=== PATIENT | female | born 1960 | race Caucasian/White ===

== ENCOUNTER → 2018-04-01 13:46 | Outpatient (REF) | payer BC, SELFPAY ==
--- NOTE | 2018-04-01 13:00 | PAPFT_PTH ---
PATIENT: Tara Carrillo LOC: [facility] U#:[id number] AGE/SX: 65/F ROOM: RE04/01/[address]: LUIS ARMANDO Major : 1960 BED: DIS: SPEC #: [id number] RECD: 04/01/18 15:31 STATUS: KATINA REGris #: [id number] MARVEL: 04/01/18 13:[address]: Alessia Thomas DEPT: COUNT INCLUDES THE [facility] Cytology RECD BY: Annette Butler ENTERED: 04/01/18 15:31 SP TYPE: PAPFT OTHR DR: Nicki Soto Tissues: 1 - CX/ENDOCX FOR PAP SMEARS Procedures: PAP THIN PREP/UVM Screening HPV DNA PROBE Comments: [id number]
== END ==
LOC: LBN 13:46
PROVIDERS: PCP Nurse Practitioner; Visit Provider Nurse Practitioner Family
DX: Z12.4 Encounter for screening for malignant neoplasm of cervix (principal); Z11.51 Encounter for screening for human papillomavirus (HPV)
CPT/HCPCS: 88142; 87624

== ENCOUNTER → 2018-04-11 01:18 | Outpatient (CLI) | payer BC, SELFPAY ==
--- NOTE | 2018-04-11 15:23 | DI.REPORT_ITS ---
SYMPTOMS/DIAGNOSIS: SCREENING, Z12.31 MAMMOGRAM: Mammograms were interpreted according to the usual protocol including computer analysis with CAD system, tomosynthesis and C view imaging. The breasts are of moderate density with fairly symmetrical distribution of fibroglandular tissue. No dominant mass or clumped microcalcification is identified in either breast. Current examination is compared with the previous examinations including October 2015 and there has been no gross interval change in appearance in comparison with the previous studies. CONCLUSION: No specific evidence of malignancy at this time. Routine screening examinations are suggested at yearly intervals due to the family history of breast carcinoma. Category 1, breast density category B. MQSA ASSESSMENT OF FINDINGS: Negative. Category 1. Patient will receive a letter notifying them of these results. BI-RADS category B. There are scattered areas of fibroglandular density.
== END ==
PROVIDERS: PCP Nurse Practitioner; Visit Provider Nurse Practitioner Family
DX: Z12.31 Encounter for screening mammogram for malignant neoplasm of breast (principal); Z80.3 Family history of malignant neoplasm of breast
CPT/HCPCS: 77063; 77067

== ENCOUNTER 2019-12-12 01:27 | Outpatient (CLI) | payer OTHER, SELFPAY ==
[2019-12-15 11:05] LABS: HBs Antibody, Quant >1000.0 mIU/mL (See Note); Hepatitis B Surface Ab Positive (See Note)
== END 2019-12-12 01:47 ==
PROVIDERS: Nurse Practitioner Family; PCP Nurse Practitioner; Visit Provider Nurse Practitioner Family
DX: Z02.1 Encounter for pre-employment examination (principal); Z01.84 Encounter for antibody response examination
CPT/HCPCS: 36415; 86706

== ENCOUNTER 2020-01-01 07:41 | Outpatient (REF) | payer OTHER, SELFPAY ==
[2020-01-01 17:29] LABS: ALT 38 U/L (14-59); AST 20 U/L (15-37); Albumin 3.5 g/dL (3.4-5.0); Alkaline Phosphatase 78 U/L (46-116); Anion Gap 9.1 mmol/L (3-11); BUN 15 mg/dL (7-18); Bilirubin, Total 0.3 mg/dL (0.2-1.0); CO2 26.9 mmol/L (21.0-32.0); CREATININE 1.02 mg/dL (0.55-1.02); Calcium 8.8 mg/dL (8.5-10.1); Calculated LDL 142 mg/dL (<100); Chloride 106 mmol/L (98-107); Cholesterol 220 mg/dL (<200); Estimated GFR 55.86 (mL/min/1.73m2); Glucose 90 mg/dL (74-106); HDL Cholesterol 58 mg/dL (40-60); Magnesium 2.1 mg/dL (1.8-2.4); Potassium 4.1 mmol/L (3.5-5.1); Sodium 142 mmol/L (136-145); TSH (W/Ref FT4) 2.18 uIU/mL (0.36-3.74); Total Protein 6.6 g/dL (6.4-8.2); Triglyceride 104 mg/dL (<150)
== END 2020-01-01 08:01 ==
LOC: NCHCN 07:41
PROVIDERS: PCP Nurse Practitioner; Visit Provider Nurse Practitioner
DX: R00.2 Palpitations (principal); R03.0 Elevated blood-pressure reading, without diagnosis of hypertension; E78.5 Hyperlipidemia, unspecified
CPT/HCPCS: 80053; 80061; 83735; 84443

== ENCOUNTER 2020-02-04 01:00 | Outpatient (CLI) | payer OTHER, SELFPAY ==
--- NOTE | 2020-02-04 | DI.MAMMO_ITS ---
EXAM: MG MAMMO SCREENING CLINICAL HISTORY: [facility] Z00.00, SCREENING TECHNIQUE: Bilateral full field digital CC and MLO mammographic images were obtained with 3D tomosyn thesis and utilizing computer aided detection (CAD). COMPARISON: Available for comparison. FINDINGS: Masses/Architectural Distortion: None seen. Microcalcifications: No suspicious pleomorphic-type are seen. Skin Thickening/Nipple Retraction: None. IMPRESSION: 1. No significant interval change with no specific features of malignancy noted. 2. Unless there is more urgent need, screening mammography is recommended, as per [place] [employer] guidelines. BI-RADS Category 1 - Negative Breast Density - Category B - Scattered areas of fibroglandular density A negative radiographic report should not delay biopsy if a dominant or clinically suspicious mass is present. Up to ten percent of cancers are not identified on mammography. A negative report may reinforce clinical impression. Adenosis and dense breasts may obscure an underlying neoplasm. False positive reports average 6 to 10%. Patient will receive a letter notifying them of these results.
== END 2020-02-04 01:20 ==
PROVIDERS: PCP Nurse Practitioner; Visit Provider Nurse Practitioner Family
DX: Z00.00 Encounter for general adult medical examination without abnormal findings (principal); Z12.31 Encounter for screening mammogram for malignant neoplasm of breast
CPT/HCPCS: 77063; 77067

== ENCOUNTER 2020-05-05 07:14 | Day surgery (SDC) | payer OTHER, SELFPAY ==
--- NOTE | 2020-05-05 06:47 | W.COLOREPORT ---
Date of service: 05/05/20 Time of Service: 08:49 Colonoscopy Report Date of procedure: 05/05/20 Pre-op diagnosis general: rectal bleeding, Family history of Colon CA and personal history of polyps Post-op diagnosis procedure note: other (Grade 1 and 2 internal hemorrhoids, mild diverticulosis) Procedure: Colonoscopy Surgeon: Madelyn Adames Anesthesia proc note operative: other (general/ ASA 2/ Germán Rothman, TRACEY) Estimated blood loss (mL): 0 Pathology: none sent Complications: None Disposition: same day Indications: Tara is here today because she had 2 episodes of rectal bleeding. She had some abdominal pain as well. At this point her symptoms have resolved. She does have a family history of colon cancer and she herself has had 2 colonoscopies with tubular adenomas 1 in 2009 and one in 2013. Her last colonoscopy in 2016 was normal. Differential diagnosis includes bleeding from a hemorrhoid, Diverticular bleed or a polyp/mass. Prep: Miralax/Dulcolax Procedure Start Time: 08:49 Procedure End Time: 09:13 Retraction Time: 9 minutes Findings: mild diverticulosis. Grade 1 and 2 internal hemorrhoids No polyps Procedure Description: After informed consent was obtained the patient was taken to the procedure room and placed in a left decubitous position. Monitors were applied and a time out was done. The patients name, date of , procedure, allergies to medications and metal in their body was reviewed. The patient was then sedated. Once sedated and comfortable a rectal exam was done. External exam was normal. Internal exam revealed a normal sphincter tone and no palpable masses. The scope was then introduced and retro-flexed. Grade 1 and 2 internal hemorrhoids were identified. The scope was then advanced to the cecum without difficulty. The ileocecal valve and appendiceal orifice were identified. The prep was adequate. The scope was then slowly retracted over 9 minutes back into the rectum. There were no polyps. There was mild diverticulosis of the descending and sigmoid colon. The scope was removed and the patient was woken up and taken back to Same day surgery in stable condition. The patient tolerated the procedure well and there were no immediate complications. Follow up: The patient should follow up in 5 years, due to family history of colon cancer, unless they develop changes in bowel habits or other new gastrointestinal complaints.
--- NOTE | 2020-05-05 06:51 | W.PM.DSUDISC ---
Discharge Plan Disposition Patient Disposition: HOME Condition: Good Discharge Details Reason For Visit: Rectal bleeding Attending Provider: Madelyn Adames Primary Care Provider: Nicki Soto Home Meds and New Rx's Prescriptions: Continued fexofenadine 180 mg tablet 180 mg PO DAILY RF: 0 omeprazole 10 MG capsule,delayed release(DR/EC) 20 mg PO DAILY RF: 0 Discharge Instructions Instructions: Hemorrhoids (DC), Diverticulosis (DC) Additional Instructions: Findings: mild diverticulosis internal hemorrhoids Follow up: 5 years Please call if you develop: fevers >101.5 Nausea or Vomiting Abdominal pain that is not transient DAY SURGERY UNIT POST ENDOSCOPY INSTRUCTIONS 1. Because there will be medication in your system for the next 24 hours, you may feel a little sleepy. Your coordination will be affected. Therefore: a. Do not drive or operate dangerous equipment for 24 hours. b. Do not drink alcohol beverages for 24 hours (not even beer). c. Plan to go home and rest for the day. 2. Generally there are no restrictions on your activity after a day or so has gone by, but you may feel a bit fatigued for a few days. 3 After you arrive home you may have a light meal and return to a normal diet as you can tolerate it without feeling sick to your stomach. 4. After surgery, you may feel pain or discomfort. This should be only transient, but if it persists please contact your doctor. 5. If there are any questions regarding the findings of your procedure, please feel free to contact your doctor. 6. If you are unable to contact your doctor with a problem, contact the hospital at [phone]. 7. Continue all your regular medications unless directed otherwise. I understand the above instructions and have no questions. Signature of Patient or Responsible Adult Escort Date/Time Name of Responsible Adult Escort Signature of Nurse Date/Time Activity:: Activity as Tolerated Diet:: High Fiber Discharge Orders Discharge Orders: Discharge Order (Routine); Ordered 05/05/20 Ordered By: Madelyn Adames
[2020-05-05 07:20] VITALS: BP 126/78; PULSE 77; RESP 18; TEMP 36.1; O2SAT 97
[2020-05-05] MEDS: Lactated Ringers 1,000 ML 80 ML IV (07:45)
[2020-05-05 09:59] VITALS: BP 154/74; PULSE 80; RESP 16; TEMP 36.5; O2SAT 98
== END 2020-05-05 10:36 | disposition home or self-care (01) ==
PROVIDERS: PCP Nurse Practitioner; Visit Provider Surgery
PROC: 0DJD8ZZ Inspection of Lower Intestinal Tract, Via Natural or Artificial Opening Endoscopic (ICD-10-PCS; CPT 45378; principal; 2020-05-05 08:30)
DX: K62.5 Hemorrhage of anus and rectum (principal); Z86.010 Personal history of colon polyps; Z80.0 Family history of malignant neoplasm of digestive organs; K57.30 Diverticulosis of large intestine without perforation or abscess without bleeding; K64.1 Second degree hemorrhoids
CPT/HCPCS: 45378; J2001

== ENCOUNTER 2020-11-29 12:06 | Outpatient (REF) | payer OTHER, SELFPAY ==
--- NOTE | 2020-11-29 09:30 | PAPFT_PTH ---
PATIENT: Tara Carrillo LOC: [facility] U#:[id number] AGE/SX: 60/F ROOM: RE11/29/[address]: LUIS ARMANDO Major : 1960 BED: DIS: 11/29/2020 SPEC #: [id number] RECD: 11/29/20 12:57 STATUS: KATINA REGris #: [id number] MARVEL: 11/29/20 09:[address]: Alessia Thomas DEPT: [facility] Cytology RECD BY: Annette Butler ENTERED: 11/29/20 12:57 SP TYPE: PAPFT OTHR DR: Nicki Soto Tissues: 1 - CX/ENDOCX FOR PAP SMEARS Procedures: PAP THIN PREP/UVM Screening HPV DNA PROBE Comments: [id number]
== END 2020-11-29 12:07 | disposition home or self-care (01) ==
LOC: LBN 12:06
PROVIDERS: PCP Nurse Practitioner; Visit Provider Nurse Practitioner Family
DX: Z12.4 Encounter for screening for malignant neoplasm of cervix (principal); Z11.51 Encounter for screening for human papillomavirus (HPV)
CPT/HCPCS: 88142; 87624

== ENCOUNTER 2021-02-04 02:12 | Outpatient (CLI) | payer OTHER, SELFPAY ==
--- NOTE | 2021-02-04 06:45 | DI.MAMMO_ITS ---
Exam(s) MAMMO SCREENING EXAM: MAMMO SCREENING CLINICAL HISTORY: screening, Z12.39 TECHNIQUE: Bilateral full field digital CC and MLO mammographic images were obtained with 3D tomosyn thesis and utilizing computer aided detection (CAD). COMPARISON: Available for comparison. FINDINGS: Masses/Architectural Distortion: None seen. Microcalcifications: No suspicious pleomorphic-type are seen. Skin Thickening/Nipple Retraction: None. IMPRESSION: 1. No significant interval change with no specific features of malignancy noted. 2. Unless there is more urgent need, screening mammography is recommended, as per [place] [employer] guidelines. BI-RADS Category 1 - Negative Breast Density - Category B - Scattered areas of fibroglandular density Breast density category C or D implies that the patient has dense breast tissue. Dense breast tissue is very common and is not abnormal but dense breast tissue can make it harder to find cancer on a ma mmogram. Also, dense breast tissue may increase their breast cancer risk. This information about the result of the mammogram report was provided to the patient to raise their awareness. Use this report when you speak with the patient about their risks for breast cancer, which includes their family hist ory. At that time, you may recommend for more screening tests (Ultrasound or MRI) as they might be us eful based on their risk. A negative radiographic report should not delay biopsy if a dominant or clinically suspicious mass is present. Up to ten percent of cancers are not identified on mammography. A negative report may reinforce clinical impression. Adenosis and dense breasts may obscure an underlying neoplasm. False positive reports average 6 to 10%. Patient will receive a letter notifying them of these results.
== END 2021-02-04 02:32 ==
PROVIDERS: PCP Nurse Practitioner; Visit Provider Nurse Practitioner Family
DX: Z12.31 Encounter for screening mammogram for malignant neoplasm of breast (principal)
CPT/HCPCS: 77063; 77067

== ENCOUNTER 2022-10-19 16:50 | Outpatient (REF) | payer OTHER, SELFPAY ==
[2022-10-19 18:51] LABS: Abs Immature Grans 0.02 10^3/uL (0.0-0.06); Absolute Basophil Count 0.06 10^3/uL (0.0-0.2); Absolute Eosinophil Count 0.17 10^3/uL (0.0-0.7); Absolute Lymphocyte Count 2.32 10^3/uL (1.2-3.4); Absolute Monocyte Count 0.39 10^3/uL (0.1-0.8); Absolute Neutrophil Count 3.56 10^3/uL (1.2-6.7); Basophils % 0.9; Eosinophils % 2.6; HGB 14.3 g/dL (11.2-15.7); Immature Grans % 0.3; Lymphocytes % 35.6; MCH 28.6 pg (27.0-33.0); MCHC 32.5 % (32.0-36.0); MCV 88 fL (80-95); MPV 11.1 fL (8.0-11.0); Neutrophils % 54.6; Platelet Count 271 10^3/uL (130-400); RDW 13.1 % (11.7-14.6); RDW-SD 42.4 fL; WBC 6.52 10^3/uL (4.4-10.8)
[2022-10-19 18:59] LABS: ALT 30 U/L (14-59); AST 20 U/L (15-37); Albumin 3.7 g/dL (3.4-5.0); Alkaline Phosphatase 97 U/L (46-116); Anion Gap 7.6 mmol/L (3-11); BUN 15 mg/dL (7-18); Bilirubin, Total 0.2 mg/dL (0.2-1.0); CO2 29.4 mmol/L (21.0-32.0); CREATININE 0.9 mg/dL (0.55-1.02); Calcium 9.2 mg/dL (8.5-10.1); Calculated LDL 169 mg/dL (<100); Chloride 107 mmol/L (98-107); Cholesterol 265 mg/dL (<200); Estimated GFR 73.19 (mL/min/1.73m2); Glucose 120 mg/dL (74-106); HDL Cholesterol 63 mg/dL (40-60); Potassium 3.9 mmol/L (3.5-5.1); Sodium 144 mmol/L (136-145); TSH (W/Ref FT4) 1.77 uIU/mL (0.36-3.74); Total Protein 6.9 g/dL (6.4-8.2); Triglyceride 168 mg/dL (<150)
== END 2022-10-19 16:51 | disposition home or self-care (01) ==
LOC: NCHCN 16:50
PROVIDERS: PCP Nurse Practitioner; Visit Provider Nurse Practitioner Family
DX: K21.9 Gastro-esophageal reflux disease without esophagitis (principal); R03.0 Elevated blood-pressure reading, without diagnosis of hypertension; R00.2 Palpitations; R42 Dizziness and giddiness; E78.5 Hyperlipidemia, unspecified; Z71.89 Other specified counseling
CPT/HCPCS: 80053; 80061; 83735; 84443; 85025

== ENCOUNTER 2022-11-21 08:26 | Outpatient (CLI) | payer OTHER, SELFPAY | END 2022-11-21 08:27 | disposition home or self-care (01) | PROVIDERS: PCP Nurse Practitioner Family; Visit Provider Nurse Practitioner Family | DX: R42 Dizziness and giddiness (principal); R00.2 Palpitations | CPT/HCPCS: 93270 ==

== ENCOUNTER 2022-12-14 03:04 | Outpatient (CLI) | payer OTHER, SELFPAY ==
--- NOTE | 2022-12-14 13:12 | DI.MAMMO_ITS ---
Exam(s) MAMMO SCREENING EXAM: MAMMO SCREENING CLINICAL HISTORY: SCREENING, Z12.39 TECHNIQUE: Mammograms were interpreted according to the usual protocol including computer analysis w [email or web address] CAD system, tomosynthesis and C-view imaging. COMPARISON: 2014 through 2020 FINDINGS: The breasts are composed of scattered fibroglandular densities, Breast Density category B. No suspicious masses or suspicious microcalcifications are seen. No skin thickening or abnormal axillary lymph nodes are seen. There has been no significant change from prior exams. IMPRESSION: BI-RADS Category 1, Negative mammogram Yearly screening mammography is recommended. Breast Density - Category B, scattered fibroglandular densities. A negative radiographic report should not delay biopsy if a dominant or clinically suspicious mass is present. Up to ten percent of cancers are not identified on mammography. A negative report may reinforce clinical impression. Adenosis and dense breasts may obscure an underlying neoplasm. False positive reports average 6 to 10%. Patient will receive a letter notifying them of these results.
== END 2022-12-14 03:24 ==
LOC: DI 03:04
PROVIDERS: PCP Nurse Practitioner Family; Visit Provider Nurse Practitioner Family
DX: Z12.31 Encounter for screening mammogram for malignant neoplasm of breast (principal)
CPT/HCPCS: 77063; 77067

== ENCOUNTER 2022-12-14 08:46 | Outpatient (CLI) | payer OTHER, SELFPAY ==
--- NOTE | 2022-12-14 10:40 | W.CARDEVENT ---
Date of service: 12/14/22 Time of Service: 10:40 Cardiac Event Recorder Referring Provider:: Emperatriz Ventura Indications:: Palpitations and dizziness Cardiac Event Note: This is a cardiac event recorder ordered for palpitations and dizziness Rhythm throughout was sinus with average heart rate of 83. There was no bradycardia. Maximum heart rate was 110 There were no ventricular dysrhythmias There were rare atrial premature beats. There was no atrial fibrillation, no SVT, no high-grade AV block, no pauses greater than 3 seconds Patient's symptoms of lightheadedness were reported which generally corresponded to sinus rhythm in the 80s
== END 2022-12-14 08:47 | disposition home or self-care (01) ==
LOC: CARDOPNVT 08:46
PROVIDERS: PCP Nurse Practitioner Family; Visit Provider Internal Medicine Cardiovascular Disease
DX: R00.2 Palpitations (principal); R42 Dizziness and giddiness

== ENCOUNTER 2024-06-05 01:36 | Outpatient (CLI) | payer OTHER, SELFPAY ==
--- NOTE | 2024-06-05 | DI.MAMMO_ITS ---
Exam(s) MAMMO SCREENING EXAM: MAMMO SCREENING CLINICAL HISTORY: SCREENING MAMMO Z12.39. TECHNIQUE: Bilateral full field digital CC and MLO mammographic images were obtained with 3D tomosyn thesis and utilizing computer aided detection (CAD). COMPARISON: Prior mammograms were reviewed. FINDINGS: There has been no significant change in the appearance and distribution of the fibroglandular tissue. There are no new spiculated masses nor malignant appearing microcalcification groups. There is no significant architectural distortion nor skin thickening-retraction. IMPRESSION: No radiographic evidence of malignancy. BI-RADS Category 1 - Negative Breast Density - Category B - Scattered areas of fibroglandular density Breast density Category C or D implies that the patient has dense breast tissue. Dense breast tissue can make it harder to find cancer on a mammogram. Dense breast tissue is also associated with an incr eased risk of breast cancer. This information about the result of the mammogram report was provided to the patient to raise their awareness. Use this report when you speak with the patient about their risks for breast cancer, which includes their family history. At that time, you may recommend additional screening tests (Ultrasoun d or MRI) as these tests may add significant information. A negative radiographic report should not delay biopsy if a dominant or clinically suspicious mass is present. Up to ten percent of cancers are not identified on mammography. A negative report may reinforce clinical impression. Adenosis and dense breasts may obscure an underlying neoplasm. False positive reports average 6 to 10%. Patient will receive a letter notifying them of these results.
== END 2024-06-05 01:56 ==
LOC: DI 01:36
PROVIDERS: PCP Nurse Practitioner Family; Visit Provider Nurse Practitioner Family
DX: Z12.31 Encounter for screening mammogram for malignant neoplasm of breast (principal)
CPT/HCPCS: 77063; 77067

== ENCOUNTER 2024-07-09 21:56 | Outpatient (REF) | payer OTHER, SELFPAY ==
[2024-07-09 19:13] LABS: ALT 27 U/L (14-59); AST 21 U/L (15-37); Albumin 3.6 g/dL (3.4-5.0); Alkaline Phosphatase 86 U/L (46-116); BUN 17 mg/dL (7-18); Bilirubin, Total 0.38 mg/dL (0.2-1.0); CREATININE 0.7 mg/dL (0.55-1.02); Calcium 9.1 mg/dL (8.5-10.1); Calculated LDL 154 mg/dL (<100); Chloride 107 mmol/L (98-107); Cholesterol 247 mg/dL (<200); Estimated GFR 97.72 (mL/min/1.73m2); Glucose 80 mg/dL (74-106); HDL Cholesterol 64 mg/dL (40-60); Potassium 3.9 mmol/L (3.5-5.1); Sodium 144 mmol/L (136-145); Triglyceride 145 mg/dL (<150)
[2024-07-09 19:18] LABS: Hemoglobin A1C 5.4 % (<5.7)
[2024-07-10 19:22] LABS: Hepatitis C Ab w Rflx HCV PCR Negative (Negative)
== END 2024-07-09 21:57 | disposition home or self-care (01) ==
LOC: NCHCN 21:56
PROVIDERS: PCP Nurse Practitioner Family; Visit Provider Nurse Practitioner Family
DX: Z00.00 Encounter for general adult medical examination without abnormal findings (principal); Z13.1 Encounter for screening for diabetes mellitus; Z13.228 Encounter for screening for other metabolic disorders; Z11.59 Encounter for screening for other viral diseases; Z13.220 Encounter for screening for lipoid disorders
CPT/HCPCS: 80053; 80061; 86803; 83036

== ENCOUNTER 2025-07-10 08:49 | Day surgery (SDC) | payer OTHER, SELFPAY ==
[2025-07-10 08:56] VITALS: BP 141/65; PULSE 80; RESP 20; TEMP 36.4; O2SAT 96
[2025-07-10] MEDS: Lactated Ringers 1,000 ML 80 ML IV (09:29)
--- NOTE | 2025-07-10 10:44 | W.ANESPRE ---
General Info Date of Service Date Performed: 07/10/25 Height: 4 ft 11 in Weight: 70.6 kg Body Mass Index (BMI): 31.4 Surgical Procedure: Operation Date: 07/10/25 10:05 Proposed Procedure Side Surgeon p Colonoscopy Loraine Meier MD Meds Allergies and Home Medications Allergies Allergy/AdvReac Type Severity Reaction Status Date / Time No Known Allergies Allergy Verified 07/10/25 09:08 Home Medication Medication Instructions Recorded loratadine 5 mg/5 mL oral solution 10 ml PO ONCE 03/03/22 (Claritin) estradiol 10 mcg vaginal tablet 10 mcg vaginal .twice weekly 12 07/10/24 (Vagifem) months #30 tabs montelukast 10 mg tablet 10 mg PO DAILY 06/05/25 esomeprazole magnesium 20 mg 20 mg PO DAILY 06/09/25 capsule,delayed release (Nexium) Current Visit Medications: Current Medications Generic Name Dose Route Start Last Admin Trade Name Freq PRN Reason Stop Dose Admin Ringer's Solution 1,000 mls @ 80 mls/hr 07/10/25 06:00 07/10/25 09:29 IV 07/10/25 23:59 80 mls/hr INFUSION MELQUIADES Administration IV Miscellaneous Supplies 1 each 07/10/25 06:00 Iv Access IV 07/10/25 23:59 DIRECTED MELQUIADES Sodium Chloride 0 ml 07/10/25 06:00 Normal Saline Flush 10 Ml Syr IV 07/10/25 23:59 PRN PRN Sodium Chloride 0 ml 07/10/25 06:00 Normal Saline 10 Ml Vial IJ 07/10/25 23:59 DIRECTED PRN Sterile Water 0 ml 07/10/25 06:00 Water,Injection,Sterile 10 Ml Vial IJ 07/10/25 23:59 DIRECTED PRN PFSH Active Problems Active Problems: Problem Status Onset Code Tinnitus Acute H93.19 Hyperlipidemia Acute E78.5 Atrophic vaginitis Acute N95.2 Postmenopausal bleeding Acute N95.0 Family history of colon cancer Acute Z80.0 Encounter for screening for other viral diseases Acute Z11.59 Medical History Medical History Polyp of colon TUBULAR ADENOMA Gastroesophageal reflux disease Surgical History Surgical History Ligation of fallopian tube section X 3 Colonoscopy - IV Sedation (09/22/16) 07/2010- Tubular adenoma 08/2013-TUBULAR ADENOMA 04/2020-diverticulosis, q5y for family hx Tobacco Smoking/Tobacco Use Status: Never Alcohol Alcohol Intake: current Alcohol intake frequency: holidays/special occasions only Substance Use Substance use: Never Substance use type: does not use Vital Signs and Lab Results Vital Signs Most Recent Vital Signs in EMR: Most Recent Vital Signs Temp Pulse Resp BP Pulse Ox 36.4 C L 80 20 141/65 H 96 07/10/25 08:56 07/10/25 08:56 07/10/25 08:56 07/10/25 08:56 07/10/25 08:56 Anesthesia Assessment and Plan Anesthesia History Personal History: No History of Anesthesia Complications Family History: No Family History of Anesthesia Complications Exercise Tolerance Exercise Tolerance: Metabolic Equivalents>4 Pertinent Negatives Pertinent Negatives: No Symptoms of GERD Cardiac & Pulmonary Exam Cardiac Exam: Normal S1/S2 Heart Sounds Pulmonary Exam: Clear Bilateral Breath Sounds Implantable Cardiac Device Does patient have a Pacemaker or an ICD?: No Airway Exam Known Difficult Airway: No Mallampati Class: 2 Mouth Opening: Normal (> 3cm) Thyromental Distance: Greater than 3 cm Neck Range of Motion: Full ROM Neck Circumference: Normal Teeth Condition: Normal Dentition ASA Classification ASA Score: ASA 2 Emergency Case?: No NPO Status NPO Status: NPO Clears >2 hours, Solids >8 hours Anesthesia Plan Resuscitation Status: Full Code Anesthesia Technique: General Anesthesia Airway Planned: Natural Airway Monitors Used: Standard Monitors
[2025-07-10 10:45] VITALS: BMI 31.4
--- NOTE | 2025-07-10 10:45 | W.PM.HP.N ---
Date of service: 07/10/25 Time of Service: 10:45 Assessment and Plan Assessment and plan (1) Family history of colon cancer: Status: Acute Assessment and plan: Patient is a 65 yo female who presents for a colonoscopy. She has a family history significant for colon cancer and has had some abdominal bloating. She denies any recent changes in her health. The procedure was discussed with her as well as the risks and benefits were discused with her and consent was obtained prior to the procedure. Plan for colonoscopy. History of Present Illness Narrative: Patient is a 65 yo female who presents for a colonoscopy. She has a family history significant for colon cancer and has had some abdominal bloating. She denies any recent changes in her health. Review of Systems Cardiovascular Cardiovascular: Denies chest pain and Denies dyspnea Respiratory Respiratory: Denies dyspnea Gastrointestinal Gastrointestinal: Denies abdominal pain, Denies nausea and Denies vomiting PFSH All Active Problems Tinnitus (Acute) Hyperlipidemia (Acute) Atrophic vaginitis (Acute) Postmenopausal bleeding (Acute) Family history of colon cancer (Acute) Encounter for screening for other viral diseases (Acute) Medical History Polyp of colon TUBULAR ADENOMA Gastroesophageal reflux disease Surgical History Ligation of fallopian tube section X 3 Colonoscopy - IV Sedation (09/22/16) 07/2010- Tubular adenoma 08/2013-TUBULAR ADENOMA 04/2020-diverticulosis, q5y for family hx Family History Mother Diabetes Heart disease Father Personal history of malignant neoplasm COLON Colon cancer Grandmother Breast cancer [employer] Maternal Aunt Colon cancer Social History Smoking/Tobacco Use Status: Never Smoking risk assessment performed?: Yes Alcohol Intake: current Alcohol Intake frequency: holidays/special occasions only Drug use: Never Substance use type: does not use Housing: house Do you feel safe at home: Yes Do you feel safe in your relationship?: Yes Meds Allergies and Home Medications Allergies Allergy/AdvReac Type Severity Reaction Status Date / Time No Known Allergies Allergy Verified 07/10/25 09:08 Home Medications Medication Instructions Recorded Confirmed Type loratadine 5 mg/5 mL oral solution 10 ml PO ONCE 03/03/22 07/10/25 History (Claritin) estradiol 10 mcg vaginal tablet 10 mcg vaginal .twice weekly 12 07/10/24 07/10/25 Rx (Vagifem) months #30 tabs montelukast 10 mg tablet 10 mg PO DAILY 06/05/25 07/10/25 History esomeprazole magnesium 20 mg 20 mg PO DAILY 06/09/25 07/10/25 History capsule,delayed release (Nexium) Exam Narrative Exam Narrative: General: Well appearing, no acute distress. Skin: Good turgor, no visible rashes or lesion HEENT: Normocephalic, atraumatic CV: Regular rate Lungs: Bilateral equal chest rise, non-labored breathing Extremities: Warm, well perfused Neurologic: No focal deficits Psychiatric: Alert and oriented, normal mood and affect Results Last Vital Signs Temp 36.4 C L 07/10/25 08:56 Pulse 80 07/10/25 08:56 Resp 20 07/10/25 08:56 BP 141/65 H 07/10/25 08:56 Pulse Ox 96 07/10/25 08:56 Time Spent Time spent with Patient: <40 minutes Time was spent: preparing to see the patient(eg.review tests), obtaining and/or reviewing separately otained hiistory and counseling the patient
--- NOTE | 2025-07-10 11:25 | W.PM.DSUDISC ---
Date of service: 07/10/25 Discharge Plan Disposition Patient Disposition: Home Condition: Good Discharge Details Reason For Visit: Screening colonoscopy Attending Provider: Loraine Meier Primary Care Provider: YINKA SULLIVAN Home Meds and New Rx's Prescriptions: Continued loratadine [Claritin] 5 mg/5 mL solution 10 ml PO ONCE esomeprazole magnesium [Nexium] 20 mg capsule,delayed release(DR/EC) 20 mg PO DAILY estradiol [Vagifem] 10 mcg tablet 10 mcg vaginal .twice weekly 360 Days Qty: 30 3RF montelukast 10 mg tablet 10 mg PO DAILY Discharge Instructions Additional Instructions: Your colonoscopy went well today. You did not have any evidence of polyps or other abnormality. You did have some small outpouchings of the colon or diverticulosis. The recommendation would be to have a repeat colonoscopy in 5 years. Please contact the general surgery office if you have any questions or concerns. 1. If tolerated, consume a soft, low fiber diet for 1-2 days. 2[address] Do not drive, drink alcohol, operate machinery, make critical decisions, or do activities that require coordination or balance for 24 hours. 3. Because air was put into your colon during the procedure, expelling air from your rectum (passing gas or farting) is normal. 4. You may not have a bowel movement for 1-3 days because of the colonoscopy prep. This is normal. 5. Go directly to the emergency room if you notice any of the following: Develop chills (warm to touch), or if you have a thermometer and your temperature is above 101 Difficulty breathing or difficultly swallowing Persistent vomiting Severe abdominal pain, other than gas cramps Severe chest pain Black, tarry stools Any bleeding – exceeding one tablespoon 6. Call your physician if the site where your intravenous was started becomes red, swollen, painful, and warm to touch. 7. Your physician has reviewed your pre-procedure medications. Please continue to take those medications as previously ordered. You will be given specific information/education regarding any changes to your medications before leaving. Stand Alone Forms: Portal Information Activity:: Activity as Tolerated Diet:: As Tolerated Discharge Orders Discharge Orders: Discharge Order (Routine); Ordered 07/10/25 Ordered By: Loraine Meier DS: Diagnosis Discharge Diagnosis (1) Family history of colon cancer: Status: Acute
[2025-07-10 11:27] VITALS: BP 121/57; PULSE 78; RESP 18; TEMP 35.9; O2SAT 96
--- NOTE | 2025-07-10 11:27 | COLE_ITS ---
Date of service: 07/10/25 Time of Service: 11: Colonoscopy Report Date of procedure: 07/10/25 Pre-op diagnosis general: Screening colonoscopy, family history of colon cancer Post-op diagnosis procedure note: same Procedure: Colonoscopy Surgeon: Loraine Meier Anesthesia Type: General:No Airway Estimated blood loss (mL): 0 Pathology: none sent Complications: None Disposition: PACU Indications: Patient is a 65 yo female who presents for a colonoscopy. She has a family history significant for colon cancer and has had some abdominal bloating. Prep: Miralax/Dulcolax Procedure Start Time: 11:02 Procedure End Time: 11:21 Retraction Time: 12 Findings: Normal colonoscopy. Evidence of scattered diverticulosis throughout the rectosigmoid colon. Procedure Description: Informed consent was obtained. The patient was taken to the endoscopy suite and placed in the left lateral decubitus position. After adequate intravenous sedation, digital rectal exam was performed, which was normal. A colonoscope was inserted into the rectum and easily negotiated to the cecum. The ileocecal valve and appendiceal orifice were identified. The entire colonic mucosa was then carefully circumferentially inspected upon slow withdrawal of the scope. The cecum, ascending, transverse, and descending colon were all normal. In the rectosigmoid colon, there was evidence of scattered diverticulosis. Retroflexion in the rectum was unremarkable. The patient tolerated the procedure well with no complications. Postoperatively, the patient was transferred to the recovery room in stable condition. Sheldon Bowel Prep Sheldon Bowel Prep Right Colon: 3 Left Colon: 3 Transverse Colon: 3 Total Score: 9
--- NOTE | 2025-07-10 11:39 | W.ANESPOSTOP ---
Postoperative Evaluation Date, Time and Location Date Performed: 07/10/25 Time Performed: 11:39 Patient Location: Day Surgery Unit Vital Signs Most Recent Imported Vital Signs: Most Recent Vital Signs Temp Pulse Resp BP Pulse Ox 35.9 C L 78 18 121/57 L 96 07/10/25 11:27 07/10/25 11:27 07/10/25 11:27 07/10/25 11:27 07/10/25 11:27 Pain Score Most Recent Pain Score: Most Recent Pain Score Pain Level 0 07/10/25 11:27 Assessment Mental Status: Awake (Alert & Oriented to Patient Baseline) Airway and Respiratory Function: Patent airway with normal (patient baseline) respiratory exam Cardiovascular Function: Hemodynamically Stable Hydration Status: Adequately Hydrated Nausea & Vomiting: No Nausea or Vomiting Pain: Pt. Denies Any Pain Peripheral Nerve Block: Patient did not receive a nerve block
[2025-07-10 12:00] VITALS: BP 147/68; PULSE 73; RESP 18; TEMP 36.4; O2SAT 98
== END 2025-07-10 12:23 | disposition home or self-care (01) ==
PROVIDERS: PCP Nurse Practitioner Family; Visit Provider Student in an Organized Health Care Education/Training Program
PROC: 0DJD8ZZ Inspection of Lower Intestinal Tract, Via Natural or Artificial Opening Endoscopic (ICD-10-PCS; CPT 45378; principal; 2025-07-10 10:00)
DX: Z12.11 Encounter for screening for malignant neoplasm of colon (principal); Z80.0 Family history of malignant neoplasm of digestive organs; K57.30 Diverticulosis of large intestine without perforation or abscess without bleeding
CPT/HCPCS: 45378; J2003; J2704

== ENCOUNTER 2025-07-14 14:51 | Outpatient (REF) | payer OTHER, SELFPAY ==
[2025-07-14 20:13] LABS: ALT 38 U/L (10-49); AST 32 U/L (<34); Albumin 4.2 g/dL (3.4-5.0); Alkaline Phosphatase 77 U/L (46-116); Anion Gap 9.6 mmol/L (3-11); BUN 14 mg/dL (9-23); Bilirubin, Total 0.30 mg/dL (0.2-1.2); CO2 24.4 mmol/L (20.0-31.0); Calcium 9.2 mg/dL (8.3-10.6); Chloride 107 mmol/L (98-107); Cholesterol 234 mg/dL (<200); Glucose 81 mg/dL (74-106); HDL Cholesterol 58 mg/dL (>40); Potassium 3.9 mmol/L (3.5-5.1); Sodium 141 mmol/L (136-145); Total Protein 6.8 g/dL (5.7-8.2)
[2025-07-14 20:16] LABS: Vitamin D 25 Total 16 ng/mL (30-100)
== END 2025-07-14 14:52 | disposition home or self-care (01) ==
LOC: NCHCN 14:51
PROVIDERS: PCP Nurse Practitioner Family; Visit Provider Nurse Practitioner Family
DX: Z00.00 Encounter for general adult medical examination without abnormal findings (principal)
CPT/HCPCS: 80053; 80061; 82306